=== PATIENT | female | born 1980 | race American Indian/Alaskan Native ===

== ENCOUNTER 2016-06-21 06:14 | Day surgery (SDC) | payer MEDICAID ==
[2016-06-21] MEDS ORDERED: WATER FOR IRRIG STERILE IR ONE (07:01)
--- NOTE | 2016-06-21 07:37 | Anesthesia Consultation ---
Anesthesia Consult and Med Hx Date of service: 06/21/16 - Airway Anesthetic Teeth Evaluation: Good ROM Head & Neck: Adequate Mental/Hyoid Distance: Adequate Mallampati Class: Class III Intubation Access Assessment: Possibly Difficult - Pulmonary Exam CTA: Yes - Cardiac Exam Cardiac Exam: RRR - Pre-Operative Health Status ASA Pre-Surgery Classification: ASA3 Proposed Anesthetic Plan: General, MAC - Pulmonary Hx Smoking: Yes (Hx) - Cardiovascular System Hx Hypertension: No - Central Nervous System Hx Seizures: No - Endocrine Hx Insulin Dependent Diabetes: No - Other Systems Hx Obesity: Yes
--- NOTE | 2016-06-21 07:37 | Anesthesia Day of Surgery ---
Anesthesia Day of Surgery - Day of Surgery Patient Examined: Yes Patient H&P Reviewed: Yes Patient is NPO: Yes
--- NOTE | 2016-06-21 07:54 | Discharge Summary ---
Providers - Providers Date of discharge: 06/21/16 Attending physician: CLARITA LOFTON Primary care physician: DOROTA PENNINGTON Hospitalization Condition: Stable Procedures: EGD Disposition: DISCHARGED TO HOME OR SELFCARE Core Measure Documentation - Palliative Care Palliative Care/ Comfort Measures: Not Applicable - Core Measures Any of the following diagnoses?: none Exam - Physical Exam Narrative exam: unchanged from preop - Constitutional Vitals: Temp Pulse Resp BP Pulse Ox 98.2 F 63 14 116/58 98 06/21/16 07:45 06/21/16 07:45 06/21/16 07:45 06/21/16 07:45 06/21/16 07:45 Plan Activity: advance as tolerated Diet: low carbohydrate Follow up with: DOROTA PENNINGTON INTEGRATION DIRECTOR [Primary Care Provider] - 7 Days
[2016-06-21] MEDS ORDERED: NACL 0.9% 1000 ML 1,000 ML IV SCH (08:00)
[2016-06-21] MEDS ORDERED: SUBLIMAZE ONE (08:41)
[2016-06-21] MEDS ORDERED: DIPRIVAN 10 MG/ML IV ONE (08:41)
--- NOTE | 2016-06-21 08:41 | Operative Report ---
Operative Report Operative Report: EGD Post bypass DATE: 06/21/2016 OPERATIVE REPORT - EGD PREOP DIAGNOSIS: gastric dyspepsia POSTOP DIAGNOSIS: failure of gastrojejunostomy anastomosis SURGERY: Upper endoscopy. SURGEON: Jerrod Schwartz M.D. CASTING MACHINE SET UP OPERATOR: Geraldo Cowan M.D. TYPE OF ANESTHESIA: MAC. ESTIMATED BLOOD LOSS: None. COMPLICATIONS: None. SPECIMENS REMOVED: None. FINDINGS: 1. normal esophagus 2. gastric pouch - 60ml 3. gastrojejunal anastomosis is 25mm INDICATIONS:INDICATION FOR PROCEDURE: Patient is a 35-year-old F s/p gastric bypass. The patient is here today for evaluation for revisional surgery. The patient is here for a planned EGD for gastric dyspepsia. PROCEDURE DETAILS: After consent was reviewed, patient was taken back to the operating room where patient was placed in the left lateral decubitus position and a bite block was placed in the mouth. After a time-out was called, MAC anesthesia was initiated. I then passed the endoscope into the patients oropharynx, into the esophagus, visualized the entire esophagus, which was all within normal limits. I then visualized the gastric pouch which was normal and about 60ml in size. The gastrojejunal anastomosis was stretched at about 25mm. The proximal portion of the robert limb was normal. I then desufflated the gastric pouch and removed the endoscope. Patient tolerated procedure well and was transferred to recovery room in good and stable condition
[2016-06-21 09:13] VITALS: BP 135/83
--- NOTE | 2016-06-21 13:29 | Post Anesthesia Evaluation ---
- Post Anesthesia Evaluation Patient Participated: Yes Airway Patent: Yes Stable Respiratory Function: Yes Nausea/Vomiting: No Temp > 96.8F: Yes Pain Manageable: Yes Adequeate Hydration: Yes Anesthesia Complications: No Block Receding Appropriately: Not Applicable Patient on Ventilator: No
== END 2016-06-21 06:15 | disposition home or self-care (01) ==
LOC: GIO 06:14
PROVIDERS: ATTEND Specialist
DX: K91.89 Other postprocedural complications and disorders of digestive system (principal); G43.909 Migraine, unspecified, not intractable, without status migrainosus; G47.33 Obstructive sleep apnea (adult) (pediatric); E66.9 Obesity, unspecified; Z68.41 Body mass index [BMI] 40.0-44.9, adult; Z87.891 Personal history of nicotine dependence; Z83.3 Family history of diabetes mellitus; Z80.9 Family history of malignant neoplasm, unspecified; Z82.49 Family history of ischemic heart disease and other diseases of the circulatory system; Z83.49 Family history of other endocrine, nutritional and metabolic diseases; Z82.3 Family history of stroke
CPT/HCPCS: 43235; 81025; J2704; J3010; J7030

== ENCOUNTER 2016-11-08 08:01 | Inpatient (IN) | payer MEDICAID ==
[~2016-11-08 08:01] MED LIST: ANCEF/STERILE WATER 2 GM/20 ML 2 GM/20 ML SYRINGE IV NR; APRESOLINE IV PRN; FLAGYL 500 MG/100 ML 500 MG/100 ML BAG IV NR; LOVENOX SUB-Q NR; TRANSDERM-SCOP TD SCH; ZOFRAN IV PRN
[2016-11-08] MEDS ORDERED: DILAUDID ONE ×2 (08:50→14:21)
[2016-11-08] MEDS ORDERED: ZEMURON IV ONE (08:50)
[2016-11-08] MEDS ORDERED: XYLOCAINE MPF 2% ONE (08:50)
[2016-11-08] MEDS ORDERED: DIPRIVAN 10 MG/ML IV ONE (08:51)
[2016-11-08 09:34] LABS: Basophils % (Auto) 0.3 % (0.0-1.8); Eosinophils % (Auto) 0.7 % (0.0-4.3); Hematocrit 33.3 % (30.3-42.9); Mean Corpuscular HGB Conc 33 % (30-34); Mean Corpuscular Volume 74 fl (79-97); Platelet Count 342 K/mm3 (140-440); Red Blood Count 4.49 M/mm3 (3.65-5.03); Red Cell Distribution Width 16.2 % (13.2-15.2); White Blood Count 6.4 K/mm3 (4.5-11.0)
[2016-11-08 09:35] LABS: Mean Corpuscular Hemoglobin 25 pg (28-32)
[2016-11-08] MEDS: LACTATED RINGERS 1,000 ML IV SCH ×3 (09:35→22:50)
[2016-11-08 09:45] LABS: Bacteria,Urine 3+ /HPF (Negative); Bilirubin,Urine NEG (Negative); Blood,Urine NEG (Negative); Ketones,Urine TR mg/dL (Negative); Leukocyte Esterase,Urine SM (Negative); Mucus,Urine 3+ /HPF; Nitrite,Urine NEG (Negative); Protein,Urine <15 mg/dL mg/dL (Negative)
[2016-11-08 09:59] LABS: Alanine Aminotransferase 12 units/L (7-56); Albumin 3.8 g/dL (3.9-5); Alkaline Phosphatase 75 units/L (35-129); Anion Gap 20 mmol/L; Blood Urea Nitrogen 16 mg/dL (7-17); Calcium 9.2 mg/dL (8.4-10.2); Carbon Dioxide 21 mmol/L (22-30); Chloride 105.8 mmol/L (98-107); Glucose 83 mg/dL (65-100); Sodium 143 mmol/L (137-145); Total Protein 7.8 g/dL (6.3-8.2)
--- NOTE | 2016-11-08 10:13 | Anesthesia Consultation ---
Anesthesia Consult and Med Hx Date of service: 11/08/16 - Airway Anesthetic Teeth Evaluation: Good ROM Head & Neck: Adequate Mental/Hyoid Distance: Adequate Mallampati Class: Class III Intubation Access Assessment: Possibly Difficult - Pre-Operative Health Status ASA Pre-Surgery Classification: ASA3 Proposed Anesthetic Plan: General - Pulmonary Hx Smoking: Yes (Hx, quit 15 years ago) Hx Sleep Apnea: Yes (No CPAP) - Cardiovascular System Hx Hypertension: Yes (off meds for last 6 months) - Central Nervous System Hx Neuromuscular Disorder: Yes (fibromyalgia) Hx Seizures: No Hx Psychiatric Problems: Yes (anxiety) - Endocrine Hx Insulin Dependent Diabetes: No - Other Systems Hx Cancer: No Hx Obesity: Yes (BMI 44.3) - Additional Comments Anesthesia Medical History Comments: multiple nonremovable piercings on the face , tongue.
--- NOTE | 2016-11-08 10:14 | Anesthesia Day of Surgery ---
Anesthesia Day of Surgery - Day of Surgery Patient Examined: Yes Patient H&P Reviewed: Yes Patient is NPO: Yes
[2016-11-08] MEDS ORDERED: VERSED IV NR (10:30)
[2016-11-08] MEDS ORDERED: PEPCID IV NR (11:00)
[2016-11-08] MEDS ORDERED: XYLOCAINE 1% 20 mL ONE (12:26)
[2016-11-08] MEDS ORDERED: MARCAINE-EPI 0.5%-1:200,000 INFILTRATI ONE ×2 (12:26→13:22)
[2016-11-08] MEDS ORDERED: NACL 0.9% IR ONE ×2 (13:21→13:22)
[2016-11-08] MEDS ORDERED: XYLOCAINE 1% 20 mL INFILTRATI ONE (13:22)
[2016-11-08] MEDS ORDERED: NEO SYNEPHRINE ONE (14:00)
[2016-11-08] MEDS ORDERED: ZOFRAN ONE (14:31)
[2016-11-08] MEDS ORDERED: ROBINUL ONE (14:31)
[2016-11-08] MEDS ORDERED: DECADRON ONE (14:31)
[2016-11-08] MEDS ORDERED: NEOSTIGMINE ONE (14:31)
[2016-11-08] MEDS: MORPHINE IV PRN ×2 (15:40→22:49)
[2016-11-08] MEDS: REGLAN IV PRN (15:43)
[2016-11-08] MEDS: MYLICON PO PRN ×2 (15:45→22:51)
[2016-11-08] MEDS: DILAUDID IV PRN (19:37)
[2016-11-08] MEDS ORDERED: NEURONTIN PO PRN (21:36)
[2016-11-09] MEDS: REGLAN IV PRN ×2 (01:25→17:49)
[2016-11-09] MEDS: DILAUDID IV PRN ×2 (03:36→12:49)
[2016-11-09] MEDS: MYLICON PO PRN ×2 (03:37→20:28)
[2016-11-09 03:48] LABS: Basophils % (Auto) 0.1 % (0.0-1.8); Hematocrit 33.8 % (30.3-42.9); Hemoglobin 10.9 gm/dl (10.1-14.3); Mean Corpuscular HGB Conc 32 % (30-34); Mean Corpuscular Volume 75 fl (79-97); Platelet Count 348 K/mm3 (140-440); Red Blood Count 4.54 M/mm3 (3.65-5.03); Red Cell Distribution Width 16.1 % (13.2-15.2); White Blood Count 11.6 K/mm3 (4.5-11.0)
[2016-11-09 04:10] LABS: Alanine Aminotransferase 16 units/L (7-56); Albumin 3.7 g/dL (3.9-5); Albumin/Globulin Ratio 0.9 %; Alkaline Phosphatase 73 units/L (35-129); Anion Gap 19 mmol/L; Blood Urea Nitrogen 10 mg/dL (7-17); Carbon Dioxide 22 mmol/L (22-30); Chloride 100.9 mmol/L (98-107); Glucose 131 mg/dL (65-100); Potassium 4.7 mmol/L (3.6-5.0); Sodium 137 mmol/L (137-145); Total Protein 7.7 g/dL (6.3-8.2)
[2016-11-09 04:11] LABS: Mean Corpuscular Hemoglobin 24 pg (28-32)
[2016-11-09] MEDS: MORPHINE IV PRN ×2 (06:52→20:44)
[2016-11-09] MEDS: LOVENOX SUB-Q SCH (10:54)
--- NOTE | 2016-11-09 12:26 | Admit Criteria Form ---
Admission Criteria Documentation: AMBULATORY SURGERY EXCEPTION CRITERIA Ambulatory Surgery Exception Criteria ( Place 'X' for any and all applicable criteria): Surgery or procedure performed on ambulatory basis may require inpatient stay for[A] ANY ONE of the following(1)(2)(3)(4)(5)(6)(7)(8)(9): [X] I. A preoperative situation, condition, or finding that warrants inpatient stay as indicated by ANY ONE of the following: [] a) Inpatient care needed because of severity of a disease or condition rather than the surgery (eg, severe cardiac or respiratory disease, severe infection) (15) (16 ) (17) (18) [] b) Emergent procedure (eg, angioplasty for acute ischemia)(19) [] c) Complex surgical approach or situation as indicated by ANY ONE of the following(3): [] i) Open approach needed instead of usual endoscopic, transcatheter, or other less invasive procedure [] ii) Difficult approach because of previous operation [] iii) Airway monitoring required after open neck procedures(20)(21) [] iv) Large mass requiring unusually extensive dissection [] v) Additional complicating feature requiring inpatient care (eg, drain management)(22(23): [X] d) Major surgery in a pt with high anesthetic risk as indicated by ANY ONE of the following (2)(3)(5)(7)(8): [X] i) ASA risk class III or higher (severe systemic disease impairing function) [D] [] ii) Advanced age (eg, older than 85 years)(14)(24) [] iii) Symptomatic heart failure(25) [] iv) Symptomatic asthma or COPD(8)(21) [] v) Morbid obesity with hemodynamic or respiratory problems(20)( 21)(26)(27) [] vi) Obstructive sleep apnea(20)(21) [] vii) Former premature infants who are younger than 60 weeks [] viii) High risk for severe postoperative abnormalities (eg, severe postoperative hypocalcemia after parathyroidectomy for severe hyperparathyroidism)(27)( 28) [] ix) Unstable angina(25) [] e) Drug-related risk requiring inpatient stay as indicated by ANY ONE of the following(5)(10)(14)(32)(33) [] i) Procedure requires discontinuing drugs or other therapy (eg , antiarrhythmic medication, antiseizure medication), which necessitates inpatient observation or treatment.(18)(31) [] ii) Major surgery and high risk drug use as indicated by ANY ONE of the following: [] 1) Active abuse of cocaine or similar drug [] 2) Monoamine oxidase inhibitor use [] 3) Other drug identified as posing risk [] f) Inadequate outpatient care situation as indicated by ANY ONE of the following(5)(10)(14)(32)(33) [] i) Patient lives remote from medical facility and procedure has urgent complication potential, and temporary nearby residence cannot be arranged [] ii) Patient will have postprocedure incapacitation and inadequate assistance at home, or alternative level of care cannot be arranged. [] iii) Patient will have long general anesthesia or procedure side effect resolution time, and competent person to stay with patient on first postoperative night at home or alternative level of care cannot be arranged. []iv) Other inadequate outpatient situation that cannot be handled by other means [] II. A perioperative event, condition, or finding that warrants inpatient stay as indicated by ANY ONE of the following (1)(2)(3): [] a) Inadequate physiologic recovery: cardiovascular, respiratory, or hemodynamic status not normal or near preoperative baseline(18) [] b) Hemodynamic instability [] c) Patient not alert with near normal or baseline mental status [] d) Temperature not normal or as expected and not appropriate for outpatient treatment of condition [] e) Ambulatory or appropriate activity level status not yet achieved post procedure [E](34)(35)(36) [] f) Operative site not appropriate (eg, unexpected or excessive drainage or bleeding) [] g) Postoperative effects not resolved or adequately managed (eg, significant pain or vomiting not appropriate for outpatient or next level of care)(10)(12) [] h) Complicating features requiring inpatient care as indicated by ANY ONE of the following(37): [] i) Severe complications of procedure (eg, bowel injury, airway compromise, vascular injury,severe hemorrhage) [] ii) Extensive (eg, dissection far beyond usual scope of procedure ) or prolonged (eg, 120 minutes beyond usual) surgery needed requiring inpatient postoperative care [] iii) Conversion to an open or complex procedure that requires inpatient care (eg, open vs laparoscopic cholecystectomy, abdominal vs vaginal hysterectomy)(38) [] iv) Comorbid condition or test result identified during or post procedure that requires inpatient care (7) [] v) Malignant hyperthermia(30) [] vi) Other complicating feature requiring inpatient care(22)(23) Inpatient stay may be needed until ALL of the following are present (1)(2)(3)(4) (5)(6)(10)(14)(33)(40): []a) Physiologic recovery: cardiovascular, respiratory, and hemodynamic status normal or near preoperative baseline []b) Hemodynamic stability []c) Patient alert, with near normal or baseline mental status []d) Temperature appropriate: patient afebrile or temperature appropriate for outpt treatment of condition []e) Activity level appropriate: ambulatory or appropriate activity level post procedure []f) Operative site appropriate as indicated by ALL of the following: []i) Site dry or with expected drainage []ii) Any blood noted is as expected for procedure. []g) Postoperative effects resolved or managed as indicated by ALL of the following: []i) Pain management appropriate for outpatient (or next level of) care(10) []ii) Minimal nausea and vomiting: if present, successfully treated with oral medication(12) []iii) Headache, dizziness, or drowsiness (if present) are mild. []h) Voiding status acceptable as indicated by ANY ONE of the following: []i) Voiding spontaneously []ii) No voiding but instructions given for follow-up in 6 to 8 hours []iii) Urinary catheter in place, and instructions given for follow-up []i) Complicating features requiring inpatient care manageable at a lower level of care(37) []j) Comorbid conditions manageable at a lower level of care(37) The original [employer] content created by [employer] has been revised. The portions of the content which have been revised are identified through the use of italic text or in bold, and [email or web address] [employer] has neither reviewed nor approved the modified material. All other unmodified content is copyright [employer]. Please see references footnoted in the original [employer] edition 2016 Admission Criteria Met: Yes
[2016-11-09] MEDS ORDERED: TORADOL IV PRN (16:02)
[2016-11-09] MEDS: REGLAN IV SCH (20:28)
--- NOTE | 2016-11-09 20:47 | Progress Note ---
Assessment and Plan - Patient Problems (1) Morbid obesity Current Visit: Yes Status: Acute Plan to address problem: 35 y.o. F s/p lap gastric bypass revision: revision of GJ anastomosis and biliopancreatic limb lengthening: POD 1 Pt is felling better compared to this afternoon. The chest discomfort is from her surgery (edema). She now understands the source of her pain and is no longer having sob. She never desaturated. She will try drinking liquids again in a couple of hrs to let her self rest. If she is tolerating liquids in the morning with pain improved and no sob she will be discharged. -continue pain control - encourage ambulation -encourage use of IS - Subjective Narrative: Pt seen and examined at bedside. Pt had chest discomfort with liquids during the day. She also had sob but improved now. She denies feeling sob when walking or talking.The chest pressure only occurred after drinking fluids. This has been different compared to her previous surgery and it made her nervous. She is ambulating and denies fevers or chills. Objective Vital Signs - 12hr 11/09/16 11/09/16 11/09/16 13:02 15:30 20:00 Temperature 98.4 F 98.6 F Pulse Rate 74 81 Respiratory 20 18 Rate Blood Pressure 126/89 134/88 O2 Sat by Pulse 100 99 Oximetry - General physical appearance well developed, well nourished, obese - Respiratory normal expansion, normal respiratory effort - Abdomen soft, tender (at incison sites ), not bowel sounds hypoactive, not rebound, not guarding, surgical scars (dressing dry blood. ), not organomegaly - Integumentary no rash - Neurologic normal coordination, normal sensation - Musculoskeletal normal posture - Psychiatric oriented to time - Labs 11/09/16 03:18 11/09/16 03:18 Diabetes panel 11/09/16 Range/Units 03:18 Sodium 137 (137-145) mmol/L Potassium 4.7 (3.6-5.0) mmol/L Chloride 100.9 (98-107) mmol/L Carbon Dioxide 22 (22-30) mmol/L BUN 10 (7-17) mg/dL Creatinine 0.8 (0.7-1.2) mg/dL Glucose 131 H (65-100) mg/dL Calcium 9.0 (8.4-10.2) mg/dL AST 25 (5-40) units/L ALT 16 (7-56) units/L Alkaline Phosphatase 73 (35-129) units/L Total Protein 7.7 (6.3-8.2) g/dL Albumin 3.7 L (3.9-5) g/dL Calcium panel 11/09/16 Range/Units 03:18 Calcium 9.0 (8.4-10.2) mg/dL Albumin 3.7 L (3.9-5) g/dL Pituitary panel 11/09/16 Range/Units 03:18 Sodium 137 (137-145) mmol/L Potassium 4.7 (3.6-5.0) mmol/L Chloride 100.9 (98-107) mmol/L Carbon Dioxide 22 (22-30) mmol/L BUN 10 (7-17) mg/dL Creatinine 0.8 (0.7-1.2) mg/dL Glucose 131 H (65-100) mg/dL Calcium 9.0 (8.4-10.2) mg/dL Adrenal panel 11/09/16 Range/Units 03:18 Sodium 137 (137-145) mmol/L Potassium 4.7 (3.6-5.0) mmol/L Chloride 100.9 (98-107) mmol/L Carbon Dioxide 22 (22-30) mmol/L BUN 10 (7-17) mg/dL Creatinine 0.8 (0.7-1.2) mg/dL Glucose 131 H (65-100) mg/dL Calcium 9.0 (8.4-10.2) mg/dL Total Bilirubin 0.30 (0.1-1.2) mg/dL AST 25 (5-40) units/L ALT 16 (7-56) units/L Alkaline Phosphatase 73 (35-129) units/L Total Protein 7.7 (6.3-8.2) g/dL Albumin 3.7 L (3.9-5) g/dL
[2016-11-10] MEDS: LACTATED RINGERS 1,000 ML IV SCH (00:29)
[2016-11-10 01:23] LABS: Basophils % (Auto) 0.2 % (0.0-1.8); Eosinophils % (Auto) 0.2 % (0.0-4.3); Hematocrit 29.1 % (30.3-42.9); Hemoglobin 9.6 gm/dl (10.1-14.3); Mean Corpuscular HGB Conc 33 % (30-34); Mean Corpuscular Volume 75 fl (79-97); Platelet Count 295 K/mm3 (140-440); Red Blood Count 3.87 M/mm3 (3.65-5.03); Red Cell Distribution Width 16.2 % (13.2-15.2); White Blood Count 8.8 K/mm3 (4.5-11.0)
[2016-11-10 01:30] LABS: Mean Corpuscular Hemoglobin 25 pg (28-32)
[2016-11-10 01:42] LABS: Anion Gap 17 mmol/L; BUN/Creatinine Ratio 11.42; Blood Urea Nitrogen 8 mg/dL (7-17); Calcium 8.5 mg/dL (8.4-10.2); Carbon Dioxide 23 mmol/L (22-30); Chloride 103.8 mmol/L (98-107); Glucose 90 mg/dL (65-100); Potassium 3.9 mmol/L (3.6-5.0); Sodium 140 mmol/L (137-145)
[2016-11-10] MEDS: REGLAN IV SCH ×2 (01:57→06:17)
[2016-11-10 07:59] VITALS: BP 115/73
[2016-11-10] MEDS: LOVENOX SUB-Q SCH (08:50)
--- NOTE | 2016-11-10 10:56 | Discharge Summary ---
Providers - Providers Date of Admission: 11/08/16 08:01 Date of discharge: 11/10/16 Attending physician: CLARITA LOFTON Primary care physician: DOROTA PENNINGTON Hospitalization Condition: Good Procedures: lap gastrojejunal revision, biliopancreatic limb lengthening, hiatal hernia repair Hospital course: 35y.o. F admitted for lap gastrojejunal revision, biliopancreatic limb lengthening, hiatal hernia repair. Pt tolerated the procedure well. On POD 1 she complained of epigastric pain worsened with drinking liquids. She also had frothing. The severe epigastric pain improved over the course of POD 1 to 2. She also had sob with the pain that also resolved on POD 2. Prior to discharge her pain was controlled, she was able to tolerate liquids and she denied vomiting. She understands the importance of ambulation, hydration and use of IS. Disposition: TO HOME OR SELFCARE - Discharge Diagnoses (1) Morbid obesity Status: Acute Core Measure Documentation - Palliative Care Palliative Care/ Comfort Measures: Not Applicable - Core Measures Any of the following diagnoses?: none Exam - Constitutional Vitals: Temp Pulse Resp BP Pulse Ox 98.3 F 65 20 115/73 100 11/10/16 07:00 11/10/16 07:00 11/10/16 07:00 11/10/16 07:00 11/10/16 07:30 General appearance: Present: no acute distress, obese - Respiratory Respiratory effort: normal - Cardiovascular Rhythm: regular - Extremities Extremities: no ischemia, No edema - Abdominal General gastrointestinal: Present: soft, other (obese, dressings removed. incisions are cdi. tender at incision sites. no rebound no guarding. ) - Integumentary Integumentary: Present: clear, warm, dry - Musculoskeletal Musculoskeletal: strength equal bilaterally - Psychiatric Psychiatric: appropriate mood/affect - Neurologic Neurologic: CNII-XII intact Plan Activity: other (no lifting >15lbs ) Diet: clear liquids (sugar free) Wound: other (wound care instructions provided to patient prior to discharge ) Additional Instructions: Follow up with Dr Steward in office 3 weeks Follow up with: DOROTA PENNINGTON, JUNIOR HIGH MATH TEACHER [Primary Care Provider] - 7 Days
[2016-11-10] MEDS ORDERED: Fluarix Quad 2017-2018(36 MOS+) IM ONE (12:00)
== END 2016-11-10 10:00 | disposition home or self-care (01) | DRG 327 ==
LOC: 3A 08:01 → 2B-SURG 15:07
PROVIDERS: ADMIT Specialist; ATTEND Specialist
PROC: 0D164ZA Bypass Stomach to Jejunum, Percutaneous Endoscopic Approach (ICD-10-PCS; principal; 2016-11-09)
PROC: 0BQS4ZZ (ICD-10-PCS; 2016-11-09)
PROC: 0BQR4ZZ (ICD-10-PCS; 2016-11-09)
PROC: 0D1B4ZB Bypass Ileum to Ileum, Percutaneous Endoscopic Approach (ICD-10-PCS; 2016-11-09)
DX: K91.1 Postgastric surgery syndromes (principal); Z68.41 Body mass index [BMI] 40.0-44.9, adult; K95.89 Other complications of other bariatric procedure; E66.01 Morbid (severe) obesity due to excess calories; K21.9 Gastro-esophageal reflux disease without esophagitis; I10 Essential (primary) hypertension; K30 Functional dyspepsia; K44.9 Diaphragmatic hernia without obstruction or gangrene; F32.9 Major depressive disorder, single episode, unspecified; M25.50 Pain in unspecified joint; Z98.84 Bariatric surgery status; Y83.2 Surgical operation with anastomosis, bypass or graft as the cause of abnormal reaction of the patient, or of later complication, without mention of misadventure at the time of the procedure
CPT/HCPCS: 36415; 80048; 80053; 81001; 81025; 85025; 90686; A4217; C9250; J0690; J1100; J1170; J1650; J1885; J2250; J2270; J2370; J2405; J2704; J2710; J2765; J7120